=== PATIENT | female | born 1975 | race Caucasian/White ===

== ENCOUNTER 2016-05-17 05:53 | Emergency (ER) | payer BC, OTHER ==
--- NOTE | 2016-05-17 06:15 | ED ---
Abdominal Pain HPI - General Source: patient, family Mode of arrival: ambulatory Limitations: no limitations - History of Present Illness Complaint: abdominal pain Onset/Timin -: days(s) Location: LLQ Radiation: none Migration to: no migration Severity: moderate Quality: cramping, aching Consistency: constant Improves With: nothing Worsens With: nothing Associated Symptoms: nausea Treatments Prior to Arrival: prescription analgesics <Justus Norwood - Last Filed: 05/17/16 06:17> <Steve Severino - Last Filed: 05/17/16 07:56> - General Chief Complaint: Abdominal Pain Stated Complaint: poss ovarian cyst Time Seen by Provider: 05/17/16 06:03 - History of Present Illness Initial Comments: This patient is a 41 year old woman who presents to be evaluated for left lower quadrant pain. The patient states that the pain is reminiscent of previous ovarian pain she had associated with a corpus luteum. It also does somewhat remind her of the pain she experienced mittelschmerz but she states she is still about 5 days away from ambulation. Patient states she tried taking Tylenol 3 for last night but it didn't really relieve the pain. When it continued this morning she decided to have it evaluated here. She has also had a little bit of nausea but no vomiting. She has experienced some feelings like constipation but she states she has continued to pass bowel movements. Patient denies any urinary changes. (Justus Norwood) - Related Data Home Medications Medication Instructions Recorded Confirmed Multivitamins, Thera [Multivitamin] 1 tab PO DAILY 05/17/16 05/17/16 Previous Rx's Medication Instructions Recorded traMADol HCl [Ultram] 50 mg PO Q6H PRN #20 tab 05/17/16 Allergies Allergy/AdvReac Type Severity Reaction Status Date / Time erythromycin base Allergy GI BLEED Verified 05/17/16 07:45 moxifloxacin [From Avelox] Allergy Swelling Verified 05/17/16 07:45 Penicillins Allergy Rash/Hives Verified 05/17/16 07:45 tetracycline Allergy Hallucinati Verified 05/17/16 07:45 ons Review of Systems ROS Other: All systems not noted in ROS Statement are negative. Constitutional: Denies: fever, chills Respiratory: Denies: cough, dyspnea Cardiovascular: Denies: chest pain, palpitations, edema Gastrointestinal: Reports: abdominal pain, nausea, constipation. Denies: vomiting, diarrhea, melena, hematochezia Genitourinary: Denies: dysuria, hematuria, discharge, abnormal menses Musculoskeletal: Denies: back pain Skin: Denies: rash Neurological: Denies: headache <CucoJustus - Last Filed: 05/17/16 06:17> ROS Other: All systems not noted in ROS Statement are negative. <Steve Severino - Last Filed: 05/17/16 07:56> ROS Statement: Those systems with pertinent positive or pertinent negative responses have been documented in the HPI. Past Medical History Past Medical History: No Reported History History of Any Multi-Drug Resistant Organisms: None Reported Past Surgical History: No Surgical Hx Reported Past Psychological History: No Psychological Hx Reported Smoking Status: Never smoker Past Alcohol Use History: None Reported Past Drug Use History: None Reported <CucoJustus - Last Filed: 05/17/16 06:17> General Exam Limitations: no limitations General appearance: alert, in no apparent distress Respiratory exam: Present: normal lung sounds bilaterally. Absent: respiratory distress, wheezes, rales, rhonchi, stridor Cardiovascular Exam: Present: regular rate, normal rhythm, normal heart sounds. Absent: systolic murmur, diastolic murmur, rubs, gallop GI/Abdominal exam: Present: soft, tenderness (There is mild left lower quadrant tenderness without any rebound or guarding), normal bowel sounds. Absent: distended, guarding, rebound, rigid, mass, pulsatile mass, hernia Extremities exam: Present: normal inspection, normal capillary refill. Absent: pedal edema, calf tenderness Back exam: Present: normal inspection. Absent: CVA tenderness (R), CVA tenderness (L) Neurological exam: Present: alert Skin exam: Present: warm, dry, intact, normal color. Absent: rash <CucoJustus - Last Filed: 05/17/16 06:17> Medical Decision Making <CucoJustus - Last Filed: 05/17/16 06:17> - Lab Data Result diagrams: 05/17/16 06:25 05/17/16 06:25 - Radiology Data Radiology results: report reviewed (Ultrasound shows 2.7 cm left ovarian simple cyst.) <Steve Severino - Last Filed: 05/17/16 07:56> - Medical Decision Making Patient reevaluated by myself, Dr. Severino. Patient resting comfortably in bed. Patient does have mild tenderness in the left lower abdomen/pelvic region. Patient offered pelvic exam however does refuse. Patient updated on results and need for follow-up. (Steve Severino) - Lab Data Lab Results 05/17/16 05/17/16 05/17/16 Range/Units 06:20 06:20 06:25 WBC (3.8-10.6) k/uL RBC (3.80-5.40) m/uL Hgb (11.4-16.0) gm/dL Hct (34.0-46.0) % MCV (80.0-100.0) fL MCH (25.0-35.0) pg MCHC (31.0-37.0) g/dL RDW (11.5-15.5) % Plt Count (150-450) k/uL Neutrophils % % Lymphocytes % % Monocytes % % Eosinophils % % Basophils % % Neutrophils # (1.3-7.7) k/uL Lymphocytes # (1.0-4.8) k/uL Monocytes # (0-1.0) k/uL Eosinophils # (0-0.7) k/uL Basophils # (0-0.2) k/uL Sodium 139 (137-145) mmol/L Potassium 3.9 (3.5-5.1) mmol/L Chloride 102 (98-107) mmol/L Carbon Dioxide 26 (22-30) mmol/L Anion Gap 11 mmol/L BUN 10 (7-17) mg/dL Creatinine 0.76 (0.52-1.04) mg/dL Est GFR (MDRD) Af Amer >60 (>60 ml/min/1.73 sqM) Est GFR (MDRD) Non-Af >60 (>60 ml/min/1.73 sqM) Glucose 101 H (74-99) mg/dL Calcium 9.2 (8.4-10.2) mg/dL Total Bilirubin 0.7 (0.2-1.3) mg/dL AST 15 (14-36) U/L ALT 27 (9-52) U/L Alkaline Phosphatase 75 (38-126) U/L Total Protein 6.9 (6.3-8.2) g/dL Albumin 4.5 (3.5-5.0) g/dL Amylase 53 (30-110) U/L Lipase 55 (23-300) U/L Urine Color Yellow Urine Appearance Clear (Clear) Urine pH 6.5 (5.0-8.0) Ur Specific [place] 1.009 (1.001-1.035) Urine Protein Negative (Negative) Urine Glucose (UA) Negative (Negative) Urine Ketones Negative (Negative) Urine Blood Negative (Negative) Urine Nitrate Negative (Negative) Urine Bilirubin Negative (Negative) Urine Urobilinogen <2.0 (<2.0) mg/dL Ur Leukocyte Esterase Negative (Negative) Urine HCG, Qual Not Detected (Not Detectd) 05/17/16 Range/Units 06:25 WBC 9.9 (3.8-10.6) k/uL RBC 4.97 (3.80-5.40) m/uL Hgb 14.6 (11.4-16.0) gm/dL Hct 44.1 (34.0-46.0) % MCV 88.7 (80.0-100.0) fL MCH 29.3 (25.0-35.0) pg MCHC 33.1 (31.0-37.0) g/dL RDW 12.5 (11.5-15.5) % Plt Count 315 (150-450) k/uL Neutrophils % 81 % Lymphocytes % 11 % Monocytes % 4 % Eosinophils % 2 % Basophils % 0 % Neutrophils # 8.0 H (1.3-7.7) k/uL Lymphocytes # 1.1 (1.0-4.8) k/uL Monocytes # 0.4 (0-1.0) k/uL Eosinophils # 0.2 (0-0.7) k/uL Basophils # 0.0 (0-0.2) k/uL Sodium (137-145) mmol/L Potassium (3.5-5.1) mmol/L Chloride (98-107) mmol/L Carbon Dioxide (22-30) mmol/L Anion Gap mmol/L BUN (7-17) mg/dL Creatinine (0.52-1.04) mg/dL Est GFR (MDRD) Af Amer (>60 ml/min/1.73 sqM) Est GFR (MDRD) Non-Af (>60 ml/min/1.73 sqM) Glucose (74-99) mg/dL Calcium (8.4-10.2) mg/dL Total Bilirubin (0.2-1.3) mg/dL AST (14-36) U/L ALT (9-52) U/L Alkaline Phosphatase (38-126) U/L Total Protein (6.3-8.2) g/dL Albumin (3.5-5.0) g/dL Amylase (30-110) U/L Lipase (23-300) U/L Urine Color Urine Appearance (Clear) Urine pH (5.0-8.0) Ur Specific [place] (1.001-1.035) Urine Protein (Negative) Urine Glucose (UA) (Negative) Urine Ketones (Negative) Urine Blood (Negative) Urine Nitrate (Negative) Urine Bilirubin (Negative) Urine Urobilinogen (<2.0) mg/dL Ur Leukocyte Esterase (Negative) Urine HCG, Qual (Not Detectd) Disposition <Justus Norwood - Last Filed: 05/17/16 06:17> <Steve Severino - Last Filed: 05/17/16 07:56> Clinical Impression: Left ovarian cyst Disposition: HOME SELF-CARE Condition: Stable Instructions: Ovarian Cyst (ED) Additional Instructions: Please follow-up with primary care physician or [employer] in the next couple of days for recheck. Return for increased pain, fever, vomiting, worsening symptoms or other concerns. Prescriptions: traMADol HCl [Ultram] 50 mg PO Q6H PRN #20 tab PRN Reason: Pain/Discomfort Referrals: Jacqueline Hassan MD [Primary Care Provider] - 1-2 days
[2016-05-17 06:41] LABS: Appearance,Urine Clear (Clear); Bilirubin,Urine Negative (Negative); Glucose,Urine (UA) Negative (Negative); Ketones,Urine Negative (Negative); Leukocyte Esterase,Urine Negative (Negative); Nitrite,Urine Negative (Negative); PH, Urine 6.5 (5.0-8.0); Protein,Urine Negative (Negative); Specific Gravity,Urine 1.009 (1.001-1.035); UA Billing (MACRO vs. MICRO) CHEM; Urobilinogen,Urine <2.0 mg/dL (<2.0)
[2016-05-17 06:41] LABS: Basophils % (A) 0 %; CHCM 33.9; Eosinophils # (A) 0.2 k/uL (0-0.7); Eosinophils % (A) 2 %; HCT 44.1 % (34.0-46.0); HDW 2.32; HGB 14.6 gm/dL (11.4-16.0); Luc # (Auto) 0.11; Luc % (Auto) 1; Lymphocytes # (A) 1.1 k/uL (1.0-4.8); Lymphocytes % (A) 11 %; MCH 29.3 pg (25.0-35.0); MCHC 33.1 g/dL (31.0-37.0); MCV 88.7 fL (80.0-100.0); Mean Platelet Volume 6.6; Monocytes # (A) 0.4 k/uL (0-1.0); Monocytes % (A) 4 %; Neutrophils % (A) 81 %; RBC 4.97 m/uL (3.80-5.40); RDW 12.5 % (11.5-15.5); WBC 9.9 k/uL (3.8-10.6); WBC (Perox) 9.56
[2016-05-17 06:49] LABS: ALT 27 U/L (9-52); AST 15 U/L (14-36); Alkaline Phosphatase 75 U/L (38-126); Amylase 53 U/L (30-110); Anion Gap 11 mmol/L; Blood Urea Nitrogen 10 mg/dL (7-17); Calcium 9.2 mg/dL (8.4-10.2); Carbon Dioxide 26 mmol/L (22-30); Chloride 102 mmol/L (98-107); Glucose 101 mg/dL (74-99); Non-African American GFR(MDRD) >60 (>60 ml/min/1.73 sqM); Potassium 3.9 mmol/L (3.5-5.1); Sodium 139 mmol/L (137-145); Total Bilirubin 0.7 mg/dL (0.2-1.3); Total Protein 6.9 g/dL (6.3-8.2)
--- NOTE | 2016-05-17 07:43 | US ---
EXAMINATION TYPE: US transvaginal DATE OF EXAM: 05/17/2016 7:25 AM COMPARISON: NONE CLINICAL HISTORY: Pain, Left pelvic. LLQ and pelvic pain x 1 day TECHNIQUE: Transvaginal (TV) pelvic ultrasound Date of LMP: 05/05/2016 EXAM MEASUREMENTS: Uterus: 10.9 x 5.1 x 5.5 Endometrial Stripe: 1.5m Right Ovary: 3.0 x 2.2 x 1.8 Left Ovary: 4.1 x 2.4 x 3.7 TECHNOLOGIST IMPRESSION: wnl 1. Uterus: Anteverted Small amount of fluid within cervix 2. Endometrium: wnl 3. Right Ovary: wnl 4. Left Ovary: Cyst= 2.7 x 1.9 x 2.4 Spectral, color and waveform doppler imaging shows good arterial and venous flow within the ovaries ; there is no evidence for ovarian torsion. 5. Bilateral Adnexa: wnl 6. Posterior cul-de-sac: wnl Uterus is anteverted in shape and within normal limits in size. Endometrial thickness is 15 mm which is upper limits of normal but normal trilaminar appearance is identified. Small amount of fluid is se en in the endometrial canal at level of cervix. No free fluid is seen in pelvic cul-de-sac. Both ovaries are identified. Peripheral follicles are scattered throughout both ovaries. Within the l eft ovary there is 2.7 x 1.9 x 2.4 cm meter oval anechoic lesion with increased through transmission felt to reflect simple cysts. Satisfactory arterial flow to and venous return from both ovaries is pr esent. IMPRESSION: A 2.7 cm simple appearing cyst left ovary is noted. No significant finding is seen to acc ount for patient's symptoms.
[2016-05-17] MEDS ORDERED: KETOROLAC 30 MG/ML 1 ML VIAL IVP STA (07:55)
[2016-05-17 07:59] VITALS: TEMP 98.5
[2016-05-17 08:48] VITALS: BP 117/60; PULSE 79; RESP 14
== END 2016-05-17 08:50 | disposition home or self-care (01) ==
LOC: EC 05:53
DX: N83.202 Unspecified ovarian cyst, left side (principal); Z88.1 Allergy status to other antibiotic agents; Z88.0 Allergy status to penicillin
CPT/HCPCS: 36415; 80053; 82150; 83690; 85025; 81003; 81025; 93975; 76830; 96374; 99284; J1885

== ENCOUNTER → 2016-07-12 | Outpatient (CLI) | payer OTHER ==
--- NOTE | 2016-07-12 10:34 | MM ---
Reason for exam: screening (asymptomatic). Baseline mammogram. History: Family history of breast cancer in mother and breast cancer in paternal grandmother. Took hormonal contraceptives for 6 years beginning at age 18. Physical Findings: Nurse did not find any significant physical abnormalities on exam. MG 3D Screening Mammo W/Cad Bilateral CC and MLO view(s) were taken. The breast tissue is heterogeneously dense. This may lower the sensitivity of mammography. There is no discrete abnormality. These results were verbally communicated with the patient and result sheet given to the patient on 07/12/16. ASSESSMENT: Negative, BI-RAD 1 RECOMMENDATION: Routine screening mammogram of both breasts in 1 year.
--- NOTE | 2016-07-12 12:56 | US ---
EXAMINATION TYPE: US transvaginal DATE OF EXAM: 07/12/2016 11:02 AM COMPARISON: Prior pelvic ultrasound May 17, 2016. CLINICAL HISTORY: N83.292 Ovarian Cyst Left. TECHNIQUE: Transvaginal (TV) EXAM MEASUREMENTS: Uterus: 8.4 x 4.3 x 5.7 cm Endometrial Stripe: 1.3 cm Right Ovary: 3.5 x 1.7 x 1.8 cm Left Ovary: 2.5 x 1.6 x 1.5 cm Extensive peristalsing bowel in bilateral adnexa. 1. Uterus: Anteverted wnl 2. Endometrium: wnl 3. Right Ovary: cyst measured at 1.1 x 1.6 x 1.4cm 4. Left Ovary: wnl 5. Bilateral Adnexa: extensive peristalsing bowel 6. Posterior cul-de-sac: wnl Both ovaries are identified. Peripheral follicles are scattered throughout both ovaries. Slightly mor e prominent 1.6 cm anechoic oval lesion right ovary likely reflects dominant follicle. Previously vis ualized 2.7 cm cystic lesion left ovary is not identified on current study, consistent with resolutio n of follicular cyst. IMPRESSION: No suspicious abnormality on current study.
== END | disposition home or self-care (01) ==
LOC: RADMAMWWP 09:31
PROVIDERS: ATTEND Obstetrics & Gynecology
DX: Z12.31 Encounter for screening mammogram for malignant neoplasm of breast (principal); N83.292 Other ovarian cyst, left side
CPT/HCPCS: 77063; 76830; G0202

== ENCOUNTER 2017-07-30 13:19 | Emergency (ER) | payer BC ==
[2017-07-30 13:45] VITALS: BP 132/61; TEMP 97.7
[2017-07-30] MEDS ORDERED: IPRATROPIUM-ALBUTEROL 3 ML NEB INHALATION STA (13:49)
--- NOTE | 2017-07-30 13:56 | ED ---
General Adult HPI - General Chief complaint: Shortness of Breath Stated complaint: Dificulty Breathing Time Seen by Provider: 07/30/17 13:46 Source: patient, RN notes reviewed Mode of arrival: ambulatory Limitations: no limitations - History of Present Illness Initial comments: Patient is a pleasant 42-year-old female presenting to the emergency department with complaints of cough and difficulty breathing. Patient has had similar symptoms several times previously associated with upper respiratory infections. Patient does have asthma at times associated with upper respiratory infection. Patient does have a nebulizer at home however does not hardly ever uses it. Patient has had cough for the past 2 weeks. Patient did have fever at onset and sore throat. Patient was placed on Keflex by her primary care physician and just finished this today. Patient states cough is getting somewhat worse and started become more thick and slightly yellowed tinged. Patient is starting to have some mild dyspnea. No leg pain or leg swelling. Patient along worse having fevers. - Related Data Home Medications Medication Instructions Recorded Confirmed Multivitamins, Thera [Multivitamin] 1 tab PO DAILY 05/17/16 05/17/16 Previous Rx's Medication Instructions Recorded traMADol HCl [Ultram] 50 mg PO Q6H PRN #20 tab 05/17/16 predniSONE 20 mg PO BID #8 tab 07/30/17 Allergies Allergy/AdvReac Type Severity Reaction Status Date / Time erythromycin base Allergy GI BLEED Verified 07/30/17 13:45 moxifloxacin [From Avelox] Allergy Swelling Verified 07/30/17 13:45 Penicillins Allergy Rash/Hives Verified 07/30/17 13:45 tetracycline Allergy Hallucinati Verified 07/30/17 13:45 ons Review of Systems ROS Statement: Those systems with pertinent positive or pertinent negative responses have been documented in the HPI. ROS Other: All systems not noted in ROS Statement are negative. Constitutional: Denies: fever Eyes: Denies: eye pain ENT: Denies: ear pain, throat pain (Resolved) Respiratory: Reports: cough, dyspnea Cardiovascular: Denies: chest pain Endocrine: Denies: fatigue Gastrointestinal: Denies: abdominal pain Genitourinary: Denies: dysuria Musculoskeletal: Denies: back pain Skin: Denies: rash Neurological: Denies: weakness Past Medical History Past Medical History: No Reported History History of Any Multi-Drug Resistant Organisms: None Reported Past Surgical History: No Surgical Hx Reported Past Psychological History: No Psychological Hx Reported Smoking Status: Never smoker Past Alcohol Use History: None Reported Past Drug Use History: None Reported General Exam Limitations: no limitations General appearance: alert, in no apparent distress Head exam: Present: atraumatic Eye exam: Present: normal appearance, PERRL ENT exam: Present: normal oropharynx Neck exam: Present: normal inspection Respiratory exam: Present: wheezes (Mild expiratory wheeze), rhonchi Cardiovascular Exam: Present: regular rate, normal rhythm GI/Abdominal exam: Present: soft. Absent: tenderness Extremities exam: Present: normal inspection. Absent: pedal edema, calf tenderness Neurological exam: Present: alert Psychiatric exam: Present: normal affect, normal mood Skin exam: Present: normal color Course Vital Signs 07/30/17 07/30/17 07/30/17 13:42 13:57 14:13 Temperature 97.7 F Pulse Rate 81 81 Respiratory 18 16 Rate Blood Pressure 132/61 O2 Sat by Pulse 97 Oximetry 07/30/17 14:22 Temperature Pulse Rate 84 Respiratory Rate Blood Pressure O2 Sat by Pulse Oximetry Medical Decision Making - Medical Decision Making Patient reevaluated and does feel somewhat better. Lungs no longer with wheezing however patient still has some rhonchi. Patient updated on results and need for follow-up. - Radiology Data Radiology results: image reviewed (Chest x-ray shows no acute process) Disposition Clinical Impression: Asthmatic bronchitis Disposition: HOME SELF-CARE Condition: Stable Instructions: Acute Bronchitis (ED), Bronchospasm (ED) Additional Instructions: Please follow-up with your primary care physician in the next day or 2 for recheck. Return for fevers, difficulty breathing, worsening or changing symptoms or other concerns. Please do use your albuterol nebulizer 4 times daily for the next 2 days and then as needed. Prescriptions: predniSONE 20 mg PO BID #8 tab Is patient prescribed a controlled substance at d/c from ED?: No Referrals: José Manuel Hernandez DO [Primary Care Provider] - 1-2 days Time of Disposition: 14:37
[2017-07-30 13:58] VITALS: RESP 16
--- NOTE | 2017-07-30 14:07 | XR ---
EXAMINATION TYPE: XR chest 2V DATE OF EXAM: 07/30/2017 COMPARISON: None HISTORY: 42-year-old female cough and dyspnea, shortness of breath TECHNIQUE: Frontal and lateral views FINDINGS: The cardiomediastinal silhouette, aorta, and pulmonary vasculature are within normal limits. Hazy low er lung densities relating to overlying soft tissue. No consolidation or pleural effusion. IMPRESSION: No acute cardiopulmonary process.
[2017-07-30 14:22] VITALS: PULSE 84
[2017-07-30] MEDS ORDERED: predniSONE 50 MG TAB PO STA (14:36)
== END 2017-07-30 15:05 | disposition home or self-care (01) ==
LOC: EC 13:19
DX: J45.909 Unspecified asthma, uncomplicated (principal); R50.9 Fever, unspecified; Z88.0 Allergy status to penicillin; Z88.1 Allergy status to other antibiotic agents
CPT/HCPCS: 94640; 71046; 99285; J7512

== ENCOUNTER 2018-03-23 15:08 | Emergency (ER) | payer BC ==
[2018-03-23] MEDS ORDERED: SODIUM CHLORIDE 0.9% 1,000 ML IV STA (15:27)
[2018-03-23 16:00] LABS: Basophils % (A) 1 %; Eosinophils # (A) 0.1 k/uL (0-0.7); Eosinophils % (A) 1 %; HGB 15.3 gm/dL (11.4-16.0); Lymphocytes # (A) 1.6 k/uL (1.0-4.8); Lymphocytes % (A) 20 %; MCH 29.6 pg (25.0-35.0); MCV 87.2 fL (80.0-100.0); Mean Platelet Volume 6.6; Monocytes # (A) 0.3 k/uL (0-1.0); Monocytes % (A) 4 %; Neutrophils % (A) 74 %; Platelet Count 338 k/uL (150-450); RBC 5.16 m/uL (3.80-5.40); RDW 12.4 % (11.5-15.5); WBC 8.2 k/uL (3.8-10.6)
--- NOTE | 2018-03-23 16:02 | XR ---
EXAMINATION TYPE: XR chest 2V DATE OF EXAM: 03/23/2018 COMPARISON: NONE HISTORY: Chest pain for 3 days TECHNIQUE: Frontal and lateral views of the chest are obtained. FINDINGS: There is no focal air space opacity, pleural effusion, or pneumothorax seen. The cardiac silhouette size is within normal limits. The osseous structures are intact. IMPRESSION: No acute cardiopulmonary process.
--- NOTE | 2018-03-23 16:02 | ED ---
Chest Pain HPI - General Chief Complaint: Chest Pain Stated Complaint: Chest pressure,heart fluttering Time Seen by Provider: 03/23/18 15:27 Source: patient, RN notes reviewed, old records reviewed Mode of arrival: ambulatory Limitations: no limitations - History of Present Illness Initial Comments: This is a 43-year-old female to the ER for evaluation is patient does say for evaluation regards to chest pain. 2-3 days of chest pain left-sided chest pain left shoulder left arm. Patient states she has history of this pain before but it did not last this long. Patient has no fevers. No cough no congestion. No recent travel history no known sick contacts. No significant shortness of breath currently. No diaphoresis. Patient has no medical history no high blood pressure high cholesterol no diabetes nonsmoker with no significant family history of heart disease MD Complaint: chest pain -: days(s) (3) Onset: during rest, during exertion Pain Location: left chest Pain Radiation: LUE, neck Severity: mild Severity scale (1-10): 2 Quality: aching Consistency: intermittent Improves With: nothing Worsens With: nothing Context: other (Patient does have history of same) Other Symptoms: other (None) Treatments Prior to Arrival: other (None) - Related Data Home Medications Medication Instructions Recorded Confirmed Caprylic Acid 2 cap PO DAILY 03/23/18 03/23/18 Dha 1 - 2 tab PO DAILY 03/23/18 03/23/18 Garlic 1 tab PO DAILY 03/23/18 03/23/18 Inulin (Pre Biotic) 2.5 ml PO DAILY 03/23/18 03/23/18 Niacin (Inositol Niacinate) 1,000 mg PO DAILY 03/23/18 03/23/18 [Niacin 500 mg Capsule] Oregano Oil 2 - 3 drop PO DAILY 03/23/18 03/23/18 Allergies Allergy/AdvReac Type Severity Reaction Status Date / Time erythromycin base Allergy GI BLEED Verified 03/23/18 16:02 latex Allergy Rash/Hives Verified 03/23/18 16:08 moxifloxacin [From Avelox] Allergy Swelling Verified 03/23/18 16:02 Penicillins Allergy Rash/Hives Verified 03/23/18 16:02 tetracycline Allergy Hallucinati Verified 03/23/18 16:02 ons Review of Systems ROS Statement: Those systems with pertinent positive or pertinent negative responses have been documented in the HPI. ROS Other: All systems not noted in ROS Statement are negative. EKG Findings - EKG Comments: EKG Findings:: EKG shows sinus rhythm rate of 88, AR 150, QRS 70, QTc 460 Past Medical History Past Medical History: No Reported History History of Any Multi-Drug Resistant Organisms: None Reported Past Surgical History: No Surgical Hx Reported Past Psychological History: No Psychological Hx Reported Smoking Status: Never smoker Past Alcohol Use History: None Reported Past Drug Use History: None Reported General Exam Limitations: no limitations General appearance: alert, in no apparent distress, anxious Head exam: Present: atraumatic, normocephalic, normal inspection Eye exam: Present: normal appearance, PERRL, EOMI. Absent: scleral icterus, conjunctival injection, periorbital swelling ENT exam: Present: normal exam, mucous membranes moist Neck exam: Present: normal inspection. Absent: tenderness, meningismus, lymphadenopathy Respiratory exam: Present: normal lung sounds bilaterally. Absent: respiratory distress, wheezes, rales, rhonchi, stridor Cardiovascular Exam: Present: normal rhythm, tachycardia, normal heart sounds. Absent: systolic murmur, diastolic murmur, rubs, gallop, clicks GI/Abdominal exam: Present: soft, normal bowel sounds. Absent: distended, tenderness, guarding, rebound, rigid Extremities exam: Present: normal inspection, full ROM, normal capillary refill. Absent: tenderness, pedal edema, joint swelling, calf tenderness Back exam: Present: normal inspection Neurological exam: Present: alert, oriented X3, CN II-XII intact Psychiatric exam: Present: normal affect, normal mood Skin exam: Present: warm, dry, intact, normal color. Absent: rash Course Vital Signs 03/23/18 03/23/18 03/23/18 15:13 17:41 19:37 Temperature 98.2 F Pulse Rate 108 H 73 89 Respiratory 20 18 18 Rate Blood Pressure 162/94 141/88 132/72 O2 Sat by Pulse 99 100 98 Oximetry - Reevaluation(s) Reevaluation #1: 03/23/18 18:58 Medical records reviewed Reevaluation #2: 03/23/18 20:51 Patient states she is having persistent pain, advised with low risk cardiac risk that she has normal testing she should follow-up with primary care Chest Pain MDM - MDM 43 female to the ED W co CP, Left CP w radiation to shoulder times [address] labwork and troponin negative, patient safe for discharge and FU w primary care. - ROWENA Score Age > 65: (0) No 3 or more CAD Risk Factors: (0) No Known CAD with more than 50% Stenosis: (0) No Aspirin use within the Past 7 Days: (0) No Elevated Cardiac Markers: (0) No ST Deviation Greater than 0.5mm: (0) No Disposition Clinical Impression: Chest pain Disposition: HOME SELF-CARE Condition: Good Instructions: Chest Pain (ED) Is patient prescribed a controlled substance at d/c from ED?: No Referrals: José Manuel Hernandez DO [Primary Care Provider] - 1-2 days
[2018-03-23 16:11] LABS: ALT 21 U/L (9-52); AST 20 U/L (14-36); Albumin 4.9 g/dL (3.5-5.0); Alkaline Phosphatase 72 U/L (38-126); Anion Gap 12 mmol/L; Blood Urea Nitrogen 13 mg/dL (7-17); Calcium 10.2 mg/dL (8.4-10.2); Carbon Dioxide 23 mmol/L (22-30); Chloride 103 mmol/L (98-107); Glucose 107 mg/dL (74-99); Lipase 87 U/L (23-300); Magnesium 1.9 mg/dL (1.6-2.3); Sodium 138 mmol/L (137-145); Total Bilirubin 0.5 mg/dL (0.2-1.3); Total Protein 7.5 g/dL (6.3-8.2)
[2018-03-23 16:18] LABS: D-Dimer 0.39 mg/L FEU (<0.60); INR 0.9 (<1.2); Partial Thromboplastin Time 24.3 sec (22.0-30.0); Prothrombin Time 9.8 sec (9.0-12.0)
[2018-03-23 16:29] LABS: Creatine Kinase 68 U/L (30-135)
[2018-03-23 16:43] LABS: Creatine Kinase MB 0.5 ng/mL (0.0-2.4); Troponin I <0.012 ng/mL (0.000-0.034)
[2018-03-23 17:42] VITALS: RESP 18
--- NOTE | 2018-03-23 19:44 | CT ---
CT CHEST FOR PULMONARY EMBOLISM. EXAMINATION TYPE: CT angio chest DATE OF EXAM: 03/23/2018 INDICATION: Chest pain. CT DLP: 262.4 mGycm, Automated exposure control for dose reduction was used. CONTRAST: Patient injected with 100ml mL of Isovue 370. COMPARISON: None TECHNIQUE: CT of the chest is performed on a spiral scan at 2 mm thick sections. Study is performed with intravenous contrast timed for evaluation for pulmonary embolism. This will limit additional po rtions of the evaluation. 3-D MIP images reconstructed by the technologist are reviewed on the compu ter in the coronal and sagittal planes. FINDINGS: No persistent filling defects are evident to suggest an acute pulmonary embolism. No mediastinal or hilar adenopathy enlarged by CT criteria is evident. The ascending aorta diameter at the level of the main pulmonary artery is 3.0 cm. The main pulmonary artery diameter at the bifur cation is 2.2 cm. Small hiatal hernia is present. Lung windows are clear. Portion of the thyroid visualized is unremarkable. Limited CT section through the upper abdomen are unremarkable. IMPRESSIONS: 1. No acute pulmonary embolism.
[2018-03-23 20:56] VITALS: BP 141/73; PULSE 82; TEMP 98
== END 2018-03-23 20:56 | disposition home or self-care (01) ==
LOC: EC 15:08
DX: R07.89 Other chest pain (principal); Z79.899 Other long term (current) drug therapy; Z88.1 Allergy status to other antibiotic agents; Z91.040 Latex allergy status; Z88.0 Allergy status to penicillin
CPT/HCPCS: 36415; 93005; 85379; 83880; 80053; 82550; 82553; 83690; 83735; 84484; 85025; 85610; 85730; 71046; 71275; 99285; 96360; 96361; Q9967

== ENCOUNTER 2018-04-20 17:19 | Inpatient (IN) | payer BC ==
[2018-04-20] MEDS ORDERED: MORPHINE SULFATE 4 MG/ML SYRINGE IV STA (17:39)
[2018-04-20] MEDS ORDERED: SODIUM CHLORIDE 0.9% 1,000 ML IV STA (17:39)
[2018-04-20] MEDS ORDERED: ONDANSETRON ODT 8 MG TAB.RAPDIS PO STA (17:39)
[2018-04-20] MEDS ORDERED: FAMOTIDINE 20 MG/2 ML VIAL IV STA (17:42)
--- NOTE | 2018-04-20 17:43 | ED ---
Abdominal Pain HPI - General Chief Complaint: Abdominal Pain Stated Complaint: ABDOMINAL PAIN, POSS GALLBLADDER Time Seen by Provider: 04/20/18 17:28 Source: patient Mode of arrival: ambulatory Limitations: no limitations - History of Present Illness Initial Comments: 43-year-old female patient presents to the emergency department today for evaluation of left upper quadrant abdominal pain. Patient states that symptoms started on Monday with a more generalized abdominal cramping and bloating. Patient states the pain has migrated now to the left upper quadrant has been constant since last evening. She describes the pain as an intense pressure. States it does radiate to the left mid back. Patient states she has no appetite , has been nauseated, and chilled. Denies any known fever. States that she did have a small bowel movement this morning however did not change her symptoms. She denies any hematochezia or melena. Denies any history of abdominal surgery. States that she was at her primary care physician's office today and did have an ultrasound performed, she has not yet gotten the results. Patient denies any recent rash, shortness breath, chest pain, numbness, tingling , dizziness, weakness, hematuria, dysuria, urinary urgency, urinary frequency, headache, visual changes, or any other complaints. - Related Data Home Medications Medication Instructions Recorded Confirmed Caprylic Acid 2 cap PO DAILY 03/23/18 04/20/18 Multivitamins, Thera [Multivitamin 1 tab PO DAILY 04/20/18 04/20/18 (formulary)] Allergies Allergy/AdvReac Type Severity Reaction Status Date / Time erythromycin base Allergy GI BLEED Verified 04/20/18 18:46 latex Allergy Rash/Hives Verified 04/20/18 18:46 moxifloxacin [From Avelox] Allergy Swelling Verified 04/20/18 18:46 Penicillins Allergy Rash/Hives Verified 04/20/18 18:46 tetracycline Allergy Hallucinati Verified 04/20/18 18:46 ons Review of Systems ROS Statement: Those systems with pertinent positive or pertinent negative responses have been documented in the HPI. ROS Other: All systems not noted in ROS Statement are negative. Past Medical History Past Medical History: No Reported History History of Any Multi-Drug Resistant Organisms: None Reported Past Surgical History: No Surgical Hx Reported Past Psychological History: No Psychological Hx Reported Smoking Status: Never smoker Past Alcohol Use History: Occasional Past Drug Use History: None Reported General Exam Limitations: no limitations General appearance: alert, in no apparent distress, other (this is a well- developed, well-nourished adult female patient in no acute distress. Vital signs upon presentation are temperature 98.5F, pulse 128, respirations 20, blood pressure 140/85, pulse ox 99% on room air.) Eye exam: Present: normal appearance, PERRL, EOMI. Absent: scleral icterus, conjunctival injection, periorbital swelling ENT exam: Present: normal exam, normal oropharynx, mucous membranes moist Respiratory exam: Present: normal lung sounds bilaterally. Absent: respiratory distress, wheezes, rales, rhonchi, stridor Cardiovascular Exam: Present: regular rate, normal rhythm, normal heart sounds. Absent: systolic murmur, diastolic murmur, rubs, gallop, clicks GI/Abdominal exam: Present: soft, tenderness (Midepigastric and left upper quadrant abdominal tenderness), normal bowel sounds. Absent: distended, guarding, rebound, rigid Neurological exam: Present: alert, oriented X3, CN II-XII intact Psychiatric exam: Present: normal affect, normal mood Skin exam: Present: warm, dry, intact, normal color. Absent: rash Course Vital Signs 04/20/18 04/20/18 04/20/18 17:25 18:25 20:08 Temperature 98.5 F 99.2 F Pulse Rate 128 H 100 97 Respiratory 20 14 14 Rate Blood Pressure 148/85 120/72 113/61 O2 Sat by Pulse 99 96 98 Oximetry Medical Decision Making - Medical Decision Making 43-year-old female patient presents to the emergency department today for evaluation of left upper quadrant abdominal pain and anorexia. Physical examination did reveal left upper quadrant and midepigastric tenderness. Patient did have an outpatient ultrasound which was reviewed and showed no acute abnormalities. Labs reviewed and did reveal elevated white blood cell count is 17.8 with a neutrophil count of 15.8. There is also 4+ ketones in the urine. Patient is given IV fluids. Diffuse pain medication. Given elevated white blood cell count and presence of abdominal tenderness or did perform CT abdomen and pelvis which did show evidence of moderate diverticulitis in the proximal descending colon. I did discuss findings and results with the patient. She will be admitted for IV antibiotics. She is agreeable with this plan. - Lab Data Result diagrams: 04/20/18 18:15 02/08/19 18:15 Lab Results 04/20/18 04/20/18 04/20/18 Range/Units 18:15 18:15 18:33 WBC 17.8 H (3.8-10.6) k/uL RBC 5.19 (3.80-5.40) m/uL Hgb 15.2 (11.4-16.0) gm/dL Hct 45.7 (34.0-46.0) % MCV 88.1 (80.0-100.0) fL MCH 29.4 (25.0-35.0) pg MCHC 33.3 (31.0-37.0) g/dL RDW 12.6 (11.5-15.5) % Plt Count 330 (150-450) k/uL Neutrophils % 89 % Lymphocytes % 6 % Monocytes % 4 % Eosinophils % 1 % Basophils % 0 % Neutrophils # 15.8 H (1.3-7.7) k/uL Lymphocytes # 1.1 (1.0-4.8) k/uL Monocytes # 0.7 (0-1.0) k/uL Eosinophils # 0.1 (0-0.7) k/uL Basophils # 0.0 (0-0.2) k/uL Sodium 138 (137-145) mmol/L Potassium 4.3 (3.5-5.1) mmol/L Chloride 106 (98-107) mmol/L Carbon Dioxide 18 L (22-30) mmol/L Anion Gap 14 mmol/L BUN 13 (7-17) mg/dL Creatinine 0.63 (0.52-1.04) mg/dL Est GFR (CKD-EPI)AfAm >90 (>60 ml/min/1.73 sqM) Est GFR (CKD-EPI)NonAf >90 (>60 ml/min/1.73 sqM) Glucose 106 H (74-99) mg/dL Calcium 9.5 (8.4-10.2) mg/dL Total Bilirubin 1.4 H (0.2-1.3) mg/dL AST 15 (14-36) U/L ALT 27 (9-52) U/L Alkaline Phosphatase 72 (38-126) U/L Total Protein 7.3 (6.3-8.2) g/dL Albumin 4.6 (3.5-5.0) g/dL Amylase 45 (30-110) U/L Lipase 28 (23-300) U/L Urine Color Yellow Urine Appearance Cloudy H (Clear) Urine pH 6.0 (5.0-8.0) Ur Specific [place] 1.028 (1.001-1.035) Urine Protein 1+ H (Negative) Urine Glucose (UA) Negative (Negative) Urine Ketones 4+ H (Negative) Urine Blood Negative (Negative) Urine Nitrite Negative (Negative) Urine Bilirubin Negative (Negative) Urine Urobilinogen 2.0 (<2.0) mg/dL Ur Leukocyte Esterase Negative (Negative) Urine RBC 9 H (0-5) /hpf Ur Squamous Epith Cells 2 (0-4) /hpf Amorphous Sediment Rare H (None) /hpf Hyaline Casts 7 H (0-2) /lpf Urine Mucus Many H (None) /hpf Urine HCG, Qual (Not Detectd) 04/20/18 Range/Units 18:33 WBC (3.8-10.6) k/uL RBC (3.80-5.40) m/uL Hgb (11.4-16.0) gm/dL Hct (34.0-46.0) % MCV (80.0-100.0) fL MCH (25.0-35.0) pg MCHC (31.0-37.0) g/dL RDW (11.5-15.5) % Plt Count (150-450) k/uL Neutrophils % % Lymphocytes % % Monocytes % % Eosinophils % % Basophils % % Neutrophils # (1.3-7.7) k/uL Lymphocytes # (1.0-4.8) k/uL Monocytes # (0-1.0) k/uL Eosinophils # (0-0.7) k/uL Basophils # (0-0.2) k/uL Sodium (137-145) mmol/L Potassium (3.5-5.1) mmol/L Chloride (98-107) mmol/L Carbon Dioxide (22-30) mmol/L Anion Gap mmol/L BUN (7-17) mg/dL Creatinine (0.52-1.04) mg/dL Est GFR (CKD-EPI)AfAm (>60 ml/min/1.73 sqM) Est GFR (CKD-EPI)NonAf (>60 ml/min/1.73 sqM) Glucose (74-99) mg/dL Calcium (8.4-10.2) mg/dL Total Bilirubin (0.2-1.3) mg/dL AST (14-36) U/L ALT (9-52) U/L Alkaline Phosphatase (38-126) U/L Total Protein (6.3-8.2) g/dL Albumin (3.5-5.0) g/dL Amylase (30-110) U/L Lipase (23-300) U/L Urine Color Urine Appearance (Clear) Urine pH (5.0-8.0) Ur Specific [place] (1.001-1.035) Urine Protein (Negative) Urine Glucose (UA) (Negative) Urine Ketones (Negative) Urine Blood (Negative) Urine Nitrite (Negative) Urine Bilirubin (Negative) Urine Urobilinogen (<2.0) mg/dL Ur Leukocyte Esterase (Negative) Urine RBC (0-5) /hpf Ur Squamous Epith Cells (0-4) /hpf Amorphous Sediment (None) /hpf Hyaline Casts (0-2) /lpf Urine Mucus (None) /hpf Urine HCG, Qual Not Detected (Not Detectd) - Radiology Data Radiology results: report reviewed, image reviewed CT abdomen and pelvis was obtained with contrast. Report was reviewed in its entirety. Impression by Dr. Mary Saab shows moderate diverticulitis of the proximal descending colon. Disposition Clinical Impression: Diverticulitis Disposition: ADMITTED IP TO THIS [facility] Condition: Serious Decision to Admit Reason: Admit from EC Decision Date: 04/20/18 Decision Time: 20:41
[2018-04-20 18:36] LABS: Basophils % (A) 0 %; Eosinophils # (A) 0.1 k/uL (0-0.7); Eosinophils % (A) 1 %; HCT 45.7 % (34.0-46.0); HGB 15.2 gm/dL (11.4-16.0); Lymphocytes # (A) 1.1 k/uL (1.0-4.8); Lymphocytes % (A) 6 %; MCH 29.4 pg (25.0-35.0); MCHC 33.3 g/dL (31.0-37.0); MCV 88.1 fL (80.0-100.0); Mean Platelet Volume 6.1; Monocytes # (A) 0.7 k/uL (0-1.0); Monocytes % (A) 4 %; Neutrophils # (A) 15.8 k/uL (1.3-7.7); Neutrophils % (A) 89 %; Platelet Count 330 k/uL (150-450); RBC 5.19 m/uL (3.80-5.40); RDW 12.6 % (11.5-15.5); WBC 17.8 k/uL (3.8-10.6)
[2018-04-20] MEDS ORDERED: ACETAMINOPHEN TAB 325 MG TAB PO STA (18:37)
[2018-04-20 18:47] LABS: ALT 27 U/L (9-52); AST 15 U/L (14-36); Albumin 4.6 g/dL (3.5-5.0); Alkaline Phosphatase 72 U/L (38-126); Amylase 45 U/L (30-110); Anion Gap 14 mmol/L; Blood Urea Nitrogen 13 mg/dL (7-17); Calcium 9.5 mg/dL (8.4-10.2); Carbon Dioxide 18 mmol/L (22-30); Chloride 106 mmol/L (98-107); Glucose 106 mg/dL (74-99); Lipase 28 U/L (23-300); Potassium 4.3 mmol/L (3.5-5.1); Sodium 138 mmol/L (137-145); Total Bilirubin 1.4 mg/dL (0.2-1.3); Total Protein 7.3 g/dL (6.3-8.2)
[2018-04-20 19:03] LABS: Amorphous Sediment,Urine Rare /hpf; Appearance,Urine Cloudy (Clear); Bilirubin,Urine Negative (Negative); Blood,Urine Negative (Negative); Color,Urine Yellow; Glucose,Urine (UA) Negative (Negative); Hyaline Casts,Urine 7 /lpf (0-2); Ketones,Urine 4+ (Negative); Leukocyte Esterase,Urine Negative (Negative); Mucus,Urine Many /hpf; Nitrite,Urine Negative (Negative); Protein,Urine 1+ (Negative); RBC,Urine 9 /hpf (0-5); Specific Gravity,Urine 1.028 (1.001-1.035); Squamous Epithelial Cell,Urine 2 /hpf (0-4)
[2018-04-20] MEDS ORDERED: SODIUM CHLORIDE 0.9% 1,000 ML IV ONE (20:03)
--- NOTE | 2018-04-20 20:13 | CT ---
EXAMINATION TYPE: CT abdomen pelvis w con DATE OF EXAM: 04/20/2018 COMPARISON: None HISTORY: left sided abdominal pain CT DLP: 720.8 mGycm Automated exposure control for dose reduction was used. TECHNIQUE: Helical acquisition of images was performed from the lung bases through the pelvis. CONTRAST: Performed without Oral Contrast and with IV Contrast, patient injected with 100 mL of Isovue 300. FINDINGS: LUNG BASES: No significant abnormality is appreciated. LIVER/GB: No significant abnormality is appreciated. PANCREAS: No significant abnormality is seen. SPLEEN: No significant abnormality is seen. ADRENALS: No significant abnormality is seen. KIDNEYS: No significant abnormality is seen. FREE AIR: No free air is visualized. RETROPERITONEAL ADENOPATHY: None visualized REPRODUCTIVE ORGANS: No significant abnormality is seen URINARY BLADDER: No significant abnormality is seen. PELVIC ADENOPATHY: None visualized. OSSEOUS STRUCTURES: No significant abnormality is seen. BOWEL: The proximal descending colon shows mild/moderate circumferential mural thickening and indist inctness There is edematous reticulation surrounding an ill-defined 1 cm diverticulum arising posteri trinh off the proximal descending colon. The moderately prominent edematous reticulation is associated with left lateral conal fascia ill-defined thickening and anterior left renal fascial ill-defined th ickening. No bowel obstruction. No extraluminal gas or fluid collections. Eventual follow-up direct visualization can be used to exclude underlying mucosal pathology. OTHER: Vasculature is unremarkable. IMPRESSION: MODERATE DIVERTICULITIS OF THE PROXIMAL DESCENDING COLON.
[2018-04-20] MEDS ORDERED: AZTREONAM 2 GM in SODIUM CHLORIDE 0.9% 100 ML IVPB STA (20:33)
[2018-04-20] MEDS ORDERED: metroNIDAZOLE-NS PMX 500 MG in SALINE 1 100ML.BAG IVPB STA (20:33)
[2018-04-20] MEDS ORDERED: NALOXONE 0.4 MG/ML 1 ML VIAL IV PRN (20:35)
[2018-04-20] MEDS ORDERED: ONDANSETRON 4 MG/2 ML VIAL IVP PRN (21:19)
[2018-04-20] MEDS: MORPHINE SULFATE 4 MG/ML SYRINGE IVP PRN (21:32)
[2018-04-20] MEDS: SODIUM CHLORIDE 0.9% 1,000 ML IV SCH (21:47)
[2018-04-20 21:56] VITALS: BMI 28.3
[2018-04-21] MEDS: MORPHINE SULFATE 4 MG/ML SYRINGE IVP PRN ×4 (03:04→21:06)
[2018-04-21] MEDS: AZTREONAM 2 GM in SODIUM CHLORIDE 0.9% 100 ML IVPB SCH ×4 (08:40→18:05)
[2018-04-21] MEDS: metroNIDAZOLE-NS PMX 500 MG in SALINE 1 100ML.BAG IVPB SCH ×3 (09:49→23:38)
--- NOTE | 2018-04-21 12:54 | P.HPIM ---
History of Present Illness H&P Date: 04/21/18 This is a 43-year-old female patient of Dr. Hernandez with past medical history of frequent urinary tract infections, remote history of tobacco use. Patient gives history that she saw Dr. Hernandez yesterday she was having abdominal pain that was in the left side going around to her flank that started on Monday she also had nausea without vomiting, chills and possible low-grade fever. Her last bowel movement was yesterday morning. She did feel that she had some constipation and took a laxative tea and she did not have a bowel movement on Monday or and was having some sharp gas pains. She is now penicillin gas but no bowel movement since yesterday. She saw Dr. Hernandez yesterday morning and was ordered for an ultrasound of the gallbladder which she did. She contacted the office which was closed and she was instructed to go to the emergency center for evaluation. Patient presented to [facility] emergency center was found to be afebrile, pulse was elevated at 128, blood pressure 140/85, pulse ox 99% on room air. White count was 17.8, electrolytes were normal except CO2 was 18, creatinine 0.63, glucose 106, total bilirubin 1.4 liver function tests were normal. Urinalysis was cloudy with nitrate and leukoesterase negative. HCG was not detected. She underwent CT of the abdomen and pelvis with contrast that showed moderate diverticulitis of the proximal descending colon. Due to antibiotic ALLERGIES, patient was started on Azactam, Flagyl, IV fluids, Zofran and morphine and admitted to the [facility] floor. Diet is currently clear liquid and she is tolerating this. Patient has never had a colonoscopy and does not have surgeon. Review of Systems All systems: negative Constitutional: Reports anorexia, Reports chills, Reports poor appetite, Denies fatigue, Denies fever Eyes: denies blurred vision, denies pain Ears, nose, mouth and throat: Denies dysphagia, Denies headache, Denies sore throat Cardiovascular: Denies chest pain, Denies decreased exercise tolerance, Denies dyspnea on exertion, Denies edema, Denies leg edema, Denies shortness of breath , Denies syncope Respiratory: Denies cough, Denies cough with sputum, Denies dyspnea, Denies excessive sputum, Denies hemoptysis, Denies home oxygen, Denies wheezing Gastrointestinal: Reports abdominal pain, Reports constipation, Reports loss of appetite, Reports nausea, Denies diarrhea, Denies vomiting Genitourinary: Reports flank pain, Denies dysuria, Denies hematuria Musculoskeletal: Denies frequent falls, Denies gait dysfunction, Denies muscle weakness, Denies myalgias Integumentary: Denies pruritus, Denies rash, Denies wounds Neurological: Denies aphasia, Denies change in mentation, Denies change in speech, Denies gait dysfunction, Denies headaches, Denies numbness, Denies seizures, Denies weakness Psychiatric: Denies anxiety, Denies depression Endocrine: Denies fatigue, Denies weight change Past Medical History Past Medical History: No Reported History Additional Past Medical History / Comment(s): Diverticulitis, frequent urinary tract infection history History of Any Multi-Drug Resistant Organisms: None Reported Past Surgical History: No Surgical Hx Reported Past Anesthesia/Blood Transfusion Reactions: No Reported Reaction Past Psychological History: No Psychological Hx Reported Smoking Status: Never smoker Past Alcohol Use History: Occasional Additional Past Alcohol Use History / Comment(s): Patient was a smoker and quit 10-15 years ago. No marijuana or illicit drug use. She drinks alcohol occasionally. Past Drug Use History: None Reported - Past Family History Mother Family Medical History: Cancer Additional Family Medical History / Comment(s): Mother has history of breast cancer and mental health issues Father Family Medical History: Prostate Disorder Additional Family Medical History / Comment(s): Father has history of alcoholism but sober for 30 years, prostate cancer that is being monitored but otherwise healthy. Brother(s) Additional Family Medical History / Comment(s): Patient has 1 brother with no major medical problems. Patient has no sisters. Daughter(s) Additional Family Medical History / Comment(s): Patient has a total of 5 children, 3 girls and 2 boys. Patient's 9-year-old son has Tourette's, OCD and ADHD. One 3-year-old daughter has seizures. Medications and Allergies Home Medications Medication Instructions Recorded Confirmed Type Caprylic Acid 2 cap PO DAILY 03/23/18 04/20/18 History Multivitamins, Thera [Multivitamin 1 tab PO DAILY 04/20/18 04/20/18 History (formulary)] Allergies Allergy/AdvReac Type Severity Reaction Status Date / Time erythromycin base Allergy GI BLEED Verified 04/20/18 18:46 latex Allergy Rash/Hives Verified 04/20/18 18:46 moxifloxacin [From Avelox] Allergy Swelling Verified 04/20/18 18:46 Penicillins Allergy Rash/Hives Verified 04/20/18 18:46 tetracycline Allergy Hallucinati Verified 04/20/18 18:46 ons Physical Exam Vitals: Vital Signs Temp Pulse Pulse Resp BP BP Pulse Ox 04/21/18 08:03 98.7 F 87 16 106/71 98 04/21/18 03:13 16 04/21/18 01:35 99.0 F 92 16 99/59 97 04/21/18 00:00 16 04/20/18 21:47 122/68 04/20/18 21:31 98.6 F 105 H 16 99/63 97 04/20/18 21:00 101 H 16 121/68 98 04/20/18 20:08 97 14 113/61 98 04/20/18 18:25 99.2 F 100 14 120/72 96 04/20/18 17:25 98.5 F 128 H 20 148/85 99 Intake and Output 04/20/18 04/21/18 04/21/18 22:59 06:59 14:59 Other: Voiding Method Urinal Toilet Weight 77.111 kg Gen: This is a 43-year-old female. She is resting bed and appears to be comfortable and in no acute distress. HEENT: Head is atraumatic, normocephalic. Pupils equal, round. Sclerae is anicteric. NECK: Supple. No JVD. No lymphadenopathy. No thyromegaly. LUNGS: Clear to auscultation. No wheezes or rhonchi. No intercostal retractions. HEART: Regular rate and rhythm. No murmur. ABDOMEN: Soft. Bowel sounds are present. No masses. Left lower quadrant tenderness. EXTREMITIES: No pedal edema. No calf tenderness. NEUROLOGICAL: Patient is awake, alert and oriented x3. Cranial nerves 2 through 12 are grossly intact. Results CBC & Chem 7: 04/20/18 18:15 04/20/18 18:15 Labs: Abnormal Lab Results - Last 24 Hours (Table) 04/20/18 04/20/18 04/20/18 Range/Units 18:15 18:15 18:33 WBC 17.8 H (3.8-10.6) k/uL Neutrophils # 15.8 H (1.3-7.7) k/uL Carbon Dioxide 18 L (22-30) mmol/L Glucose 106 H (74-99) mg/dL Total Bilirubin 1.4 H (0.2-1.3) mg/dL Urine Appearance Cloudy H (Clear) Urine Protein 1+ H (Negative) Urine Ketones 4+ H (Negative) Urine RBC 9 H (0-5) /hpf Amorphous Sediment Rare H (None) /hpf Hyaline Casts 7 H (0-2) /lpf Urine Mucus Many H (None) /hpf Thrombosis Risk Factor Assmnt - DVT/VTE Prophylaxis DVT/VTE Prophylaxis: Pharmacologic Prophylaxis ordered - Choose All That Apply Any of the Below Risk Factors Present?: Yes Each Factor Represents 1 point: Age 41-60 years, Obesity (BMI >25) Other Risk Factors: No Other congenital or acquired thrombophilia - If yes, enter type in comment: No Thrombosis Risk Factor Assessment Total Risk Factor Score: 2 Thrombosis Risk Factor Assessment Level: Low Risk Assessment and Plan Plan: 1. Acute diverticulitis with SIRS. Continue IV antibiotics with Azactam and Flagyl, IV fluids at 75 mL per hour, repeat abdominal x-ray in the morning. Continue clear liquid diet and advance slowly. Continue IV morphine for pain and Zofran for nausea. 2. Metabolic acidosis secondary to dehydration. Continue IV fluids and monitor lab work in the morning. 3. Leukocytosis secondary to diverticulitis. Recheck in the morning. 4. History of frequent urinary tract infections which patient states has been improved since she started a sugar-free diet. 5. GI prophylaxis. IV Protonix. 6. DVT prophylaxis. Lovenox. Patient will be admitted to the hospital for a minimum of 2 night stay. Discharge plan: Return home Impression and plan of care have been directed as dictated by the signing physician. Dionne Lyons nurse practitioner acting as scribe for signing physician.
[2018-04-21] MEDS: SODIUM CHLORIDE 0.9% 1,000 ML IV SCH (13:48)
[2018-04-22] MEDS: AZTREONAM 2 GM in SODIUM CHLORIDE 0.9% 100 ML IVPB SCH ×3 (03:21→22:25)
[2018-04-22 07:39] LABS: Anion Gap 6 mmol/L; Blood Urea Nitrogen 5 mg/dL (7-17); Calcium 8.5 mg/dL (8.4-10.2); Carbon Dioxide 24 mmol/L (22-30); Chloride 109 mmol/L (98-107); Glucose 94 mg/dL (74-99); Potassium 4.1 mmol/L (3.5-5.1); Sodium 139 mmol/L (137-145)
[2018-04-22] MEDS: ENOXAPARIN 40 MG/0.4 ML SYRINGE SQ SCH (08:34)
[2018-04-22] MEDS: metroNIDAZOLE-NS PMX 500 MG in SALINE 1 100ML.BAG IVPB SCH ×2 (08:34→17:13)
[2018-04-22] MEDS ORDERED: PANTOPRAZOLE 40 MG/10 ML VIAL IVP SCH (09:00)
[2018-04-22] MEDS: traMADol 50 MG TAB PO PRN ×2 (11:20→22:25)
[2018-04-22] MEDS: SODIUM CHLORIDE 0.9% 1,000 ML IV SCH ×3 (11:24→23:36)
--- NOTE | 2018-04-22 12:49 | P.PN ---
Subjective Progress Note Date: 04/22/18 This is a 43-year-old female patient of Dr. Hernandez with past medical history of frequent urinary tract infections, remote history of tobacco use. Patient gives history that she saw Dr. Hernandez yesterday she was having abdominal pain that was in the left side going around to her flank that started on Monday she also had nausea without vomiting, chills and possible low-grade fever. Her last bowel movement was yesterday morning. She did feel that she had some constipation and took a laxative tea and she did not have a bowel movement on Monday or and was having some sharp gas pains. She is now penicillin gas but no bowel movement since yesterday. She saw Dr. Hernandez yesterday morning and was ordered for an ultrasound of the gallbladder which she did. She contacted the office which was closed and she was instructed to go to the emergency center for evaluation. Patient presented to [facility] emergency center was found to be afebrile, pulse was elevated at 128, blood pressure 140/85, pulse ox 99% on room air. White count was 17.8, electrolytes were normal except CO2 was 18, creatinine 0.63, glucose 106, total bilirubin 1.4 liver function tests were normal. Urinalysis was cloudy with nitrate and leukoesterase negative. HCG was not detected. She underwent CT of the abdomen and pelvis with contrast that showed moderate diverticulitis of the proximal descending colon. Due to antibiotic ALLERGIES, patient was started on Azactam, Flagyl, IV fluids, Zofran and morphine and [facility] Diet is currently clear liquid and she is tolerating this. Patient has never had a colonoscopy and does not have surgeon. 04/22: Patient states that after she took Protonix she started having ringing in her ear and a buzzing in her head with headache, sweats and extreme nausea. Protonix will be discontinued. Patient states she is unable to tolerate Pepcid. Carafate added. Patient is otherwise tolerating her diet which will be advanced to soft. She is requesting to stop taking morphine and tramadol added for pain. IV fluids will be changed over sodium lock. Anticipate possible discharge in the next 24 hours. Review of Systems Constitutional: Denies anorexia, denies chills, denies poor appetite, Denies fatigue, Denies fever Eyes: denies blurred vision, denies pain Ears, nose, mouth and throat: Denies dysphagia, Denies headache, Denies sore throat Cardiovascular: Denies chest pain, Denies decreased exercise tolerance, Denies dyspnea on exertion, Denies edema, Denies leg edema, Denies shortness of breath , Denies syncope Respiratory: Denies cough, Denies cough with sputum, Denies dyspnea, Denies excessive sputum, Denies hemoptysis, Denies home oxygen, Denies wheezing Gastrointestinal: Reports abdominal pain, Reports constipation, denies loss of appetite, denies nausea, Denies diarrhea, Denies vomiting Genitourinary: Reports flank pain, Denies dysuria, Denies hematuria Musculoskeletal: Denies frequent falls, Denies gait dysfunction, Denies muscle weakness, Denies myalgias Integumentary: Denies pruritus, Denies rash, Denies wounds Neurological: Denies aphasia, Denies change in mentation, Denies change in speech, Denies gait dysfunction, Denies headaches, Denies numbness, Denies seizures, Denies weakness Psychiatric: Denies anxiety, Denies depression Endocrine: Denies fatigue, Denies weight change Objective - Vital Signs Vital signs: Vital Signs Temp 98.4 F 04/22/18 02:16 Pulse 86 04/22/18 02:16 Resp 16 04/22/18 02:16 BP 107/55 04/22/18 02:16 Pulse Ox 97 04/22/18 02:16 Intake & Output 04/21/18 04/22/18 04/22/18 18:59 06:59 18:59 Intake Total 2460 Balance 2460 Intake: Intake, IV Titration 1500 Amount Aztreonam 2 gm In Sodium 100 Chloride 0.9% 100 ml @ 100 mls/hr IVPB Q8H OPAL Rx#:[id number] Aztreonam 2 gm In Sodium 100 Chloride 0.9% 100 ml @ 100 mls/hr IVPB Q8HR [facility]AL Rx#:[id number] Sodium Chloride 0.9% 1, 1200 000 ml @ 100 mls/hr IV . Q10H [facility]AL Rx#:[id number] metroNIDAZOLE-NS PMX 500 100 mg In Saline 1 100ml.bag @ 100 mls/hr IVPB Q8HR OPAL Rx#:[id number] Oral 960 Other: Voiding Method Toilet # Voids 2 3 - Exam Gen: This is a 43-year-old female. She is resting bed and appears to be comfortable and in no acute distress. HEENT: Head is atraumatic, normocephalic. Pupils equal, round. Sclerae is anicteric. NECK: Supple. No JVD. No lymphadenopathy. No thyromegaly. LUNGS: Clear to auscultation. No wheezes or rhonchi. No intercostal retractions. HEART: Regular rate and rhythm. No murmur. ABDOMEN: Soft. Bowel sounds are present. No masses. Left lower quadrant tenderness, improving. EXTREMITIES: No pedal edema. No calf tenderness. NEUROLOGICAL: Patient is awake, alert and oriented x3. Cranial nerves 2 through 12 are grossly intact. - Labs CBC & Chem 7: 04/20/18 18:15 04/22/18 06:53 Labs: Abnormal Lab Results - Last 24 Hours (Table) 04/22/18 Range/Units 06:53 Chloride 109 H (98-107) mmol/L BUN 5 L (7-17) mg/dL Assessment and Plan Plan: 1. Acute diverticulitis with SIRS. Continue IV antibiotics with Azactam and Flagyl, IV fluids will be discontinued, repeat abdominal x-ray report is pending. Advance diet to full liquids for lunch and soft for supper. Tramadol added for pain, continue Zofran for nausea. 2. Metabolic acidosis secondary to dehydration. Continue IV fluids and monitor lab work in the morning. 3. Leukocytosis secondary to diverticulitis. Recheck in the morning. 4. History of frequent urinary tract infections which patient states has been improved since she started a sugar-free diet. 5. GI prophylaxis. IV Protonix. 6. DVT prophylaxis. Lovenox. Discharge plan: Return home on Monday Impression and plan of care have been directed as dictated by the signing physician. Dionne Lyons nurse practitioner acting as scribe for signing physician.
[2018-04-22] MEDS ORDERED: ACETAMINOPHEN TAB 325 MG TAB PO PRN (13:15)
--- NOTE | 2018-04-22 14:13 | XR ---
EXAMINATION TYPE: XR abdomen 2V DATE OF EXAM: 04/22/2018 COMPARISON: CT abdomen pelvis 04/20/2018 INDICATION: Diverticulitis, abdominal pain TECHNIQUE: Single view abdomen upright view. Single view supine views also obtained. FINDINGS: There is a normal bowel gas pattern. No suspicious air-fluid levels or differential air-fluid levels are present. Small amount of nonspecific small bowel gas is present. No free air is present. No suspi cious differential air-fluid levels are present. Psoas margins are normal. No organomegaly is present. There are couple calcifications within the left hemipelvis above the iliac spine level. Distal left u reteral stones are not excluded. Phleboliths are within the differential. The larger measures 0.4 cm and the smaller measures 0.3 cm. Do not appear suspicious for ureteral stones on the CT examination IMPRESSION: 1. Nonspecific abdomen. 2. Phleboliths versus distal left ureteral stones left hemipelvis.
[2018-04-22] MEDS: SUCRALFATE 1 GM TAB PO SCH (17:12)
[2018-04-23] MEDS: metroNIDAZOLE-NS PMX 500 MG in SALINE 1 100ML.BAG IVPB SCH ×2 (00:28→08:25)
[2018-04-23] MEDS: AZTREONAM 2 GM in SODIUM CHLORIDE 0.9% 100 ML IVPB SCH ×2 (02:23→12:09)
[2018-04-23] MEDS: SODIUM CHLORIDE 0.9% 1,000 ML IV SCH (05:31)
[2018-04-23] MEDS: SUCRALFATE 1 GM TAB PO SCH (08:24)
[2018-04-23] MEDS: ENOXAPARIN 40 MG/0.4 ML SYRINGE SQ SCH (08:25)
[2018-04-23 08:34] VITALS: BP 120/74; PULSE 70; RESP 17; TEMP 98.2
--- NOTE | 2018-04-23 12:08 | P.DS ---
Providers Date of admission: 04/20/18 20:41 Expected date of discharge: 04/23/18 Attending physician: Yulia Reaves Primary care physician: José Manuel Hernandez [facility] Course: This is a 43-year-old female patient of Dr. Hernandez with past medical history of frequent urinary tract infections, remote history of tobacco use. Patient gives history that she saw Dr. Hernandez yesterday she was having abdominal pain that was in the left side going around to her flank that started on Monday she also had nausea without vomiting, chills and possible low-grade fever. Her last bowel movement was yesterday morning. She did feel that she had some constipation and took a laxative tea and she did not have a bowel movement on Monday or and was having some sharp gas pains. She is now penicillin gas but no bowel movement since yesterday. She saw Dr. Hernandez yesterday morning and was ordered for an ultrasound of the gallbladder which she did. She contacted the office which was closed and she was instructed to go to the emergency center for evaluation. Patient presented to [facility] emergency center was found to be afebrile, pulse was elevated at 128, blood pressure 140/85, pulse ox 99% on room air. White count was 17.8, electrolytes were normal except CO2 was 18, creatinine 0.63, glucose 106, total bilirubin 1.4 liver function tests were normal. Urinalysis was cloudy with nitrate and leukoesterase negative. HCG was not detected. She underwent CT of the abdomen and pelvis with contrast that showed moderate diverticulitis of the proximal descending colon. Due to antibiotic ALLERGIES, patient was started on Azactam, Flagyl, IV fluids, Zofran and morphine and admitted to the MedSur floor. Diet is currently clear liquid and she is tolerating this. Patient has never had a colonoscopy and does not have surgeon. 04/22: Patient states that after she took Protonix she started having ringing in her ear and a buzzing in her head with headache, sweats and extreme nausea. Protonix will be discontinued. Patient states she is unable to tolerate Pepcid. Carafate added. Patient is otherwise tolerating her diet which will be advanced to soft. She is requesting to stop taking morphine and tramadol added for pain. IV fluids will be changed over sodium lock. Anticipate possible discharge in the next 24 hours. 04/23: Patient has been afebrile, blood pressure 108/57, pulse between 70-91. Pulse ox 97% on room air. Patient is tolerating a soft diet. Patient has been instructed to avoid constipation to prevent further episodes of diverticulitis in the future. Her last bowel movement was on Monday. Recommended Colace. Patient will be discharged today on Bactrim due to ALLERGIES. Discharge diagnoses: 1. Acute diverticulitis with SIRS. 2. Metabolic acidosis secondary to dehydration. 3. Leukocytosis secondary to diverticulitis. 4. History of frequent urinary tract infections Discharge plan: Return home Impression and plan of care have been directed as dictated by the signing physician. Dionne Lyons nurse practitioner acting as scribe for signing physician. Patient Condition at Discharge: Good Plan - Discharge Summary Discharge Rx Participant: Yes New Discharge Prescriptions: New Sulfamethox-Tmp 800-160Mg [Bactrim DS 800-160 mg] 1 tab PO Q12HR #14 tab Continue Caprylic Acid 2 cap PO DAILY Multivitamins, Thera [Multivitamin (formulary)] 1 tab PO DAILY Discharge Medication List Caprylic Acid 2 cap PO DAILY 03/23/18 [History] Multivitamins, Thera [Multivitamin (formulary)] 1 tab PO DAILY 04/20/18 [History ] Sulfamethox-Tmp 800-160Mg [Bactrim DS 800-160 mg] 1 tab PO Q12HR #14 tab [Rx] Follow up Appointment(s)/Referral(s): José Manuel Hernandez DO [Primary Care Provider] - 1 Week (Office will contact patient upon discharge to set up a follow up appointment) Discharge Disposition: HOME SELF-CARE
== END 2018-04-23 15:22 | disposition home or self-care (01) | DRG 872 ==
LOC: EC 17:19 → 4SSUR 20:41
PROVIDERS: ADMIT Family Medicine; ATTEND Family Medicine
DX: A41.9 Sepsis, unspecified organism (principal); K57.32 Diverticulitis of large intestine without perforation or abscess without bleeding; E87.2 Acidosis; K59.00 Constipation, unspecified; E86.0 Dehydration; Z80.3 Family history of malignant neoplasm of breast; Z87.440 Personal history of urinary (tract) infections; Z87.891 Personal history of nicotine dependence; Z88.1 Allergy status to other antibiotic agents
CPT/HCPCS: 36415; 74019; 74177; 80048; 80053; 81001; 81025; 82150; 83690; 85025; 96360; 96361; 96365; 96375; 99285

== ENCOUNTER → 2018-04-20 | Outpatient (CLI) | payer BC ==
--- NOTE | 2018-04-20 16:45 | US ---
EXAMINATION TYPE: US abdomen complete DATE OF EXAM: 04/20/2018 COMPARISON: CLINICAL HISTORY: R10.12 LUQ pain. NPO, No surgeries EXAM MEASUREMENTS: Liver Length: 16.7 cm Gallbladder Wall: 0.1 cm CBD: 0.5 cm CHD: 0.4 Spleen: 9.3 cm Right Kidney: 11.9 x 5.2 x 4.4 cm Left Kidney: 10.0 x 4.6 x 5.9 cm Pancreas: Tail obscured by overlying bowel gas. Echogenic in appearance. Liver: wnl Gallbladder: wnl Evidence for sonographic Fuchs's sign: neg CBD: wnl CHD: wnl Spleen: wnl Right Kidney: wnl Left Kidney: wnl Upper IVC: wnl Abd Aorta: no AAA visualized The liver is homogenous. The intrahepatic portion of the IVC and proximal abdominal aorta are within normal limits. There is no evidence of cholelithiasis. Common bile duct is unremarkable. The visu alized portions of the pancreas are homogenous. The spleen is unremarkable. Kidneys are symmetric a nd free of hydronephrosis. No renal lesions are seen. IMPRESSION: NO ACUTE PROCESS.
== END | disposition home or self-care (01) ==
LOC: RADUSMAIN 15:52
PROVIDERS: ATTEND Family Medicine
DX: R10.2 Pelvic and perineal pain (principal)
CPT/HCPCS: 76700

== ENCOUNTER → 2020-03-10 | Outpatient (CLI) | payer BC ==
--- NOTE | 2020-03-10 17:30 | ECHOF ---
Referral Reason:R00.2 palpitations MEASUREMENTS -------- HEIGHT: 165.1 cm WEIGHT: 72.6 kg BP: IVSd: 0.8 cm (0.6 - 1.1) LVIDd: 4.1 cm (3.9 - 5.3) LVPWd: 1.1 cm (0.6 - 1.1) IVSs: 1.3 cm LVIDs: 3.3 cm LVPWs: 1.2 cm LAESV Index (A-L): 23.96 ml/m Ao Diam: 3.0 cm (2.0 - 3.7) AV Cusp: 2.2 cm (1.5 - 2.6) EPSS: 0.4 cm MV E Daniel: 0.69 m/s MV DecT: 153 ms MV A Daniel: 0.48 m/s MV E/A Ratio: 1.45 RAP: 5.00 mmHg RVSP: 26.73 mmHg MV EF SLOPE: 119.59 mm/s (70 - 150) MV EXCURSION: 21.48 mm (> 18.000) FINDINGS -------- Sinus rhythm. This was a technically good study. LV size, wall thickness and systolic function are normal, with an EF greater than 55%. The left guido tricular size is normal. The right ventricle is normal in size. Normal LA size by volume 22+/-6 ml/m2. The right atrial size is normal. The aortic valve is trileaflet, and appears structurally normal. No aortic stenosis or regurgitation. Mild mitral regurgitation is present. Mild tricuspid regurgitation present. Right ventricular systolic pressure is normal at < 35 mmHg. There is no pulmonic regurgitation present. The aortic root size is normal. There is no pericardial effusion. CONCLUSIONS -------- 1. LV size, wall thickness and systolic function are normal, with an EF greater than 55%. 2. The left ventricular size is normal. 3. The right ventricle is normal in size. 4. Normal LA size by volume 22+/-6 ml/m2. 5. The right atrial size is normal. 6. Mild mitral regurgitation is present. 7. Mild tricuspid regurgitation present. 8. The aortic root size is normal. 9. There is no pericardial effusion. SALES STRATEGY MANAGER: Jeanne Cruz RD
== END | disposition home or self-care (01) ==
LOC: RADECHMAIN 14:37
PROVIDERS: ATTEND Family Medicine
DX: I08.1 Rheumatic disorders of both mitral and tricuspid valves (principal)
CPT/HCPCS: 93306

== ENCOUNTER 2020-03-17 11:51 | Emergency (ER) | payer BC ==
[2020-03-17 12:09] VITALS: BP 146/80; PULSE 98; RESP 18; TEMP 98.6
--- NOTE | 2020-03-17 13:31 | ED ---
General Adult HPI - General Chief complaint: Skin/Abscess/Foreign Body Stated complaint: abscess under arm Time Seen by Provider: 03/17/20 12:26 Source: patient, RN notes reviewed Mode of arrival: ambulatory Limitations: no limitations - History of Present Illness Initial comments: 45-year-old female presents emergency Department chief complaint of right arm discomfort, redness noted. Patient states she started a few days ago with the right axilla pain. She states that she that she was developing infection but then states the pain moved down into her bicep region along with the rash. Patient states it is red, warm to feel touch, painful and her arm. She was sent in to rule out DVT she denies any chest pain or shortness of breath she states t hat she's been having different symptoms lately because she was started on topical medications for basal cell carcinoma along with testing positive for covid - Related Data Home Medications Medication Instructions Recorded Confirmed Multivitamins, Thera [Multivitamin 1 tab PO DAILY 04/20/18 03/17/20 (formulary)] Ascorbic Acid [Vitamin C] 1,000 mg PO DAILY 03/17/20 03/17/20 Biotin 5 mg PO DAILY 03/17/20 03/17/20 Riboflavin (Vitamin B2) [Vitamin 50 mg PO DAILY 03/17/20 03/17/20 B-2] Vitamin B Complex 1 cap PO DAILY 03/17/20 03/17/20 Zinc 50 mg PO DAILY 03/17/20 03/17/20 Previous Rx's Medication Instructions Recorded Cephalexin [Keflex] 500 mg PO Q6HR #28 cap 03/17/20 Allergies Allergy/AdvReac Type Severity Reaction Status Date / Time latex Allergy Rash/Hives Verified 03/17/20 12:53 moxifloxacin [From Avelox] Allergy Swelling Verified 03/17/20 12:53 Penicillins Allergy Rash/Hives Verified 03/17/20 12:53 erythromycin base AdvReac GI BLEED Verified 03/17/20 12:53 pantoprazole [From Protonix] AdvReac Hallucinati Verified 03/17/20 12:53 ons tetracycline AdvReac Hallucinati Verified 03/17/20 12:53 ons Review of Systems ROS Statement: Those systems with pertinent positive or pertinent negative responses have been documented in the HPI. ROS Other: All systems not noted in ROS Statement are negative. Past Medical History Past Medical History: No Reported History Additional Past Medical History / Comment(s): Diverticulitis, frequent urinary tract infection history History of Any Multi-Drug Resistant Organisms: None Reported Past Surgical History: No Surgical Hx Reported Past Anesthesia/Blood Transfusion Reactions: No Reported Reaction Past Psychological History: No Psychological Hx Reported Past Alcohol Use History: Occasional Past Drug Use History: None Reported - Past Family History Mother Family Medical History: Cancer Additional Family Medical History / Comment(s): Mother has history of breast cancer and mental health issues Father Family Medical History: Prostate Disorder Additional Family Medical History / Comment(s): Father has history of alcoholism but sober for 30 years, prostate cancer that is being monitored but otherwise healthy. Brother(s) Additional Family Medical History / Comment(s): Patient has 1 brother with no major medical problems. Patient has no sisters. Daughter(s) Additional Family Medical History / Comment(s): Patient has a total of 5 children, 3 girls and 2 boys. Patient's 9-year-old son has Tourette's, OCD and ADHD. One 3-year-old daughter has seizures. General Exam Limitations: no limitations General appearance: alert, in no apparent distress Head exam: Present: atraumatic, normocephalic, normal inspection Eye exam: Present: normal appearance, PERRL, EOMI. Absent: scleral icterus, conjunctival injection, periorbital swelling Respiratory exam: Present: normal lung sounds bilaterally. Absent: respiratory distress, wheezes, rales, rhonchi, stridor Cardiovascular Exam: Present: regular rate, normal rhythm, normal heart sounds. Absent: systolic murmur, diastolic murmur, rubs, gallop, clicks Extremities exam: Present: other (Right bicep region there is an area of rash pressure 2 cm x 4 cm. Mildly tender with palpation, erythema noted neurovascular intact no tenderness of the axilla) Skin exam: Present: warm, dry Course Vital Signs 03/17/20 12:03 Temperature 98.6 F Pulse Rate 98 Respiratory 18 Rate Blood Pressure 146/80 O2 Sat by Pulse 99 Oximetry Medical Decision Making - Medical Decision Making Old chart is negative for acute DVT. Patient has area of irritation in for early cellulitis. Patient was started on antibiotics return parameters discus sed. Disposition Clinical Impression: Cellulitis Disposition: HOME SELF-CARE Condition: Stable Instructions (If sedation given, give patient instructions): Cellulitis (ED) Additional Instructions: Please return to the Emergency Department if symptoms worsen or any other concerns. Prescriptions: Cephalexin [Keflex] 500 mg PO Q6HR #28 cap Is patient prescribed a controlled substance at d/c from ED?: No Referrals: José Manuel Hernandez DO [Primary Care Provider] - 1-2 days Time of Disposition: 13:47
--- NOTE | 2020-03-17 13:44 | US ---
EXAMINATION TYPE: US venous doppler duplex UE RT DATE OF EXAM: 03/17/2020 COMPARISON: NONE CLINICAL HISTORY: 45-year-old female pain. Arm discomfort. Small area of redness. No arm swelling. Recent COVID x 1 month ago. SIDE PERFORMED: Right TECHNIQUE: Grayscale, color doppler, spectral doppler imaging performed of the deep veins of the upp er extremities. FINDINGS: There is normal flow, compressibility and vascular waveforms. Right Arm: Negative for DVT IMPRESSION: No evidence for DVT within the right upper extremity.
== END 2020-03-17 13:53 | disposition home or self-care (01) ==
LOC: EC 11:51
DX: L03.111 Cellulitis of right axilla (principal); C44.91 Basal cell carcinoma of skin, unspecified; Z88.0 Allergy status to penicillin; Z88.1 Allergy status to other antibiotic agents; Z91.040 Latex allergy status; Z88.8 Allergy status to other drugs, medicaments and biological substances; Z80.3 Family history of malignant neoplasm of breast
CPT/HCPCS: 99283

== ENCOUNTER 2021-10-17 07:08 | Emergency (ER) | payer BC ==
[2021-10-17 07:17] VITALS: RESP 16; TEMP 98.4
[2021-10-17] MEDS ORDERED: PROPARACAINE 0.5% OPHTH DROPS 15 ML BTL LEFT EYE STA (07:30)
[2021-10-17] MEDS ORDERED: diphenhydrAMINE 50 MG CAP PO STA (07:30)
[2021-10-17] MEDS ORDERED: FLUORESCEIN STRIPS 1 MG STRIP BOTH EYES ONE (07:30)
[2021-10-17] MEDS ORDERED: PROPARACAINE 0.5% OPHTH DROPS 15 ML BTL RIGHT EYE STA (07:30)
--- NOTE | 2021-10-17 07:40 | ED ---
Eye Problem HPI - General Chief complaint: Eye Problems Stated complaint: Eye Problems, Allergic Reaction Time Seen by Provider: 10/17/21 07:20 Source: patient, family Mode of arrival: ambulatory Limitations: no limitations - History of Present Illness Initial comments: Well-appearing 46-year-old female patient presents to the emergency room ambulatory with family member complaining of bilateral eye redness and drainage for one day. She states that her and her other family members have had upper respiratory symptoms and all were tested for coronavirus and negative. Patient states that she was seen at urgent care earlier in the week and diagnosed with upper respiratory infection and placed on Keflex and prednisone. Her symptoms have resolved however yesterday she developed bilateral eyelid swelling with eye redness and today woke up with crusty drainage. She is not sure if it's a reaction to the Keflex or prednisone however states she has finished taking the prednisone. She states that she has multiple ALLERGIES. Denies any headaches, states her sore throat and upper respiratory symptoms have resolved. No fevers, no nausea or vomiting and no photophobia chief complaint: eye redness, other (eye drainage) -: days(s) (1) Location: both eyes Place: home Eye Symptoms: redness, blurry vision, other (drainage) Consistency: constant Context: recent uri, sore throat Treatments Prior to Arrival: other (Prednisone Keflex) - Related Data Patient Tetanus UTD: Yes Home Medications Medication Instructions Recorded Confirmed Multivitamins, Thera [Multivitamin 1 tab PO DAILY 04/20/18 03/17/20 (formulary)] Ascorbic Acid [Vitamin C] 1,000 mg PO DAILY 03/17/20 03/17/20 Biotin 5 mg PO DAILY 03/17/20 03/17/20 Riboflavin (Vitamin B2) [Vitamin 50 mg PO DAILY 03/17/20 03/17/20 B-2] Vitamin B Complex 1 cap PO DAILY 03/17/20 03/17/20 Zinc 50 mg PO DAILY 03/17/20 03/17/20 Previous Rx's Medication Instructions Recorded Cephalexin [Keflex] 500 mg PO Q6HR #28 cap 03/17/20 Polymyxin B-Trimeth Sulf Ophth 1 drops BOTH EYES Q4H 7 Days #10 ml 10/17/21 [Polytrim Opthalmic] Allergies Allergy/AdvReac Type Severity Reaction Status Date / Time latex Allergy Rash/Hives Verified 10/17/21 07:17 moxifloxacin [From Avelox] Allergy Swelling Verified 10/17/21 07:17 Penicillins Allergy Rash/Hives Verified 10/17/21 07:17 erythromycin base AdvReac GI BLEED Verified 10/17/21 07:17 pantoprazole [From Protonix] AdvReac Hallucinati Verified 10/17/21 07:17 ons tetracycline AdvReac Hallucinati Verified 10/17/21 07:17 ons Review of Systems ROS Statement: Those systems with pertinent positive or pertinent negative responses have been documented in the HPI. ROS Other: All systems not noted in ROS Statement are negative. Past Medical History Past Medical History: No Reported History Additional Past Medical History / Comment(s): Diverticulitis, frequent urinary tract infection history History of Any Multi-Drug Resistant Organisms: None Reported Past Surgical History: No Surgical Hx Reported Past Anesthesia/Blood Transfusion Reactions: No Reported Reaction Past Psychological History: No Psychological Hx Reported Smoking Status: Never smoker Past Alcohol Use History: Occasional Past Drug Use History: None Reported - Past Family History Mother Family Medical History: Cancer Additional Family Medical History / Comment(s): Mother has history of breast cancer and mental health issues Father Family Medical History: Prostate Disorder Additional Family Medical History / Comment(s): Father has history of alcoholism but sober for 30 years, prostate cancer that is being monitored but otherwise healthy. Brother(s) Additional Family Medical History / Comment(s): Patient has 1 brother with no major medical problems. Patient has no sisters. Daughter(s) Additional Family Medical History / Comment(s): Patient has a total of 5 children, 3 girls and 2 boys. Patient's 9-year-old son has Tourette's, OCD and ADHD. One 3-year-old daughter has seizures. General Exam Limitations: no limitations General appearance: alert, in no apparent distress Head exam: Present: atraumatic Eye exam: Present: PERRL, EOMI, conjunctival injection. Absent: nystagmus Pupils: Present: normal accommodation Expanded Eyelids: Swelling: Bilateral Pupils: Regular, Round: Bilateral Sclera/Conjunctival: Injection: Bilateral Anterior chamber: Normal Inspection: Bilateral Visual acuity (R) = 20/: 30 Visual acuity (L) = 20/: 30 With correction: Yes ENT exam: Present: normal exam, normal oropharynx, mucous membranes moist Expanded Mouth exam: Present: tongue normal, tongue elevation. Absent: drooling, trismus, muffled voice Throat exam: normal inspection. negative: tonsillar erythema, tonsillomegaly, tonsillar exudate, R peritonsillar mass, L peritonsillar mass Neck exam: Present: normal inspection, full ROM. Absent: tenderness, meningismus Respiratory exam: Present: normal lung sounds bilaterally. Absent: respiratory distress, accessory muscle use Cardiovascular Exam: Present: regular rate Extremities exam: Present: normal capillary refill. Absent: pedal edema Neurological exam: Present: alert, oriented X3, normal gait Psychiatric exam: Present: normal affect, normal mood Skin exam: Present: warm, dry, normal color. Absent: cyanosis, diaphoretic, petechiae, pallor Course Vital Signs 10/17/21 10/17/21 07:15 08:02 Temperature 98.4 F Pulse Rate 94 91 Respiratory 16 16 Rate Blood Pressure 130/70 145/87 O2 Sat by Pulse 99 99 Oximetry Medical Decision Making - Medical Decision Making Patient presents with 1 days of eyelid swelling and red eyes. She was recently treated for an upper respiratory infection on Monday with Keflex and prednisone. She did finish her prednisone. Under Fluorescein staining there is no evidence of corneal abrasion, negative Taina sign. She has no pain with ocular movements. She has no vision loss. She denies headache. No fevers. This appears to be a viral conjunctivitis. She was prescribed antibiotic eyedrops directed to follow up with her primary care doctor and ophthalmology next week. She is agreeable to this plan of care. Case discussed with Dr. Lezama. Disposition Clinical Impression: Viral conjunctivitis Disposition: HOME SELF-CARE Condition: Good Instructions (If sedation given, give patient instructions): Conjunctivitis (ED) Additional Instructions: Using antibiotic drops as prescribed. Follow-up with the primary care doctor next week. Ophthalmology as needed. Use a wet washcloth to wipe sway drainage to prevent corneal abrasion. Prescriptions: Polymyxin B-Trimeth Sulf Ophth [Polytrim Opthalmic] 1 drops BOTH EYES Q4H 7 Days #10 ml Is patient prescribed a controlled substance at d/c from ED?: No Referrals: José Manuel Hernandez DO [Primary Care Provider] - 1-2 days Mario Kelley MD [STAFF PHYSICIAN] - 1-2 days Time of Disposition: 07:55
[2021-10-17 08:03] VITALS: BP 145/87; PULSE 91
== END 2021-10-17 08:03 | disposition home or self-care (01) ==
LOC: EC 07:08
DX: B30.9 Viral conjunctivitis, unspecified (principal); Z91.040 Latex allergy status; Z88.0 Allergy status to penicillin; Z88.8 Allergy status to other drugs, medicaments and biological substances; Z88.6 Allergy status to analgesic agent
CPT/HCPCS: 99283

== ENCOUNTER → 2022-03-15 | Outpatient (CLI) | payer BC ==
[2022-03-15 14:31] LABS: HCT 42.2 % (37.2-46.3); HGB 14.5 g/dL (12.0-15.0); MCH 30.1 pg (27.0-32.0); MCHC 34.4 g/dL (32.0-37.0); MCV 87.6 fL (80.0-97.0); Mean Platelet Volume 9.3 fL (9.5-12.2); NRBC Per 100 WBC 0 /100 WBCS (0.0-0.0); Platelet Count 383 X 10*3/uL (140-440); RBC 4.82 X 10*6/uL (4.10-5.20); RDW 12.6 % (11.5-14.5); WBC 5.29 X 10*3/uL (4.50-10.00)
[2022-03-15 16:07] LABS: Chol/HDL Ratio 2.67 Ratio; VLDL Calculation 13.78 mg/dL (5.00-40.00)
[2022-03-15 16:20] LABS: ALT 17 U/L (8-44); AST 20 U/L (13-35); African American GFR (CKD) 102.5 (60.0-200.0); Albumin 4.7 g/dL (3.8-4.9); Albumin/Globulin Ratio 2.24 (1.60-3.17); Alkaline Phosphatase 66 U/L (41-126); BUN/Creat Ratio 14.25 Ratio (12.00-20.00); Blood Urea Nitrogen 11.4 mg/dL (9.0-27.0); Calcium 9.2 mg/dL (8.7-10.3); Carbon Dioxide 22.3 mmol/L (20.0-27.5); Chloride 103 mmol/L (96-109); Globulin 2.1 g/dL (1.6-3.3); Glucose 87 mg/dL (70-110); Non-African American GFR(CKD) 88.4 (60.0-200.0); Potassium 4.6 mmol/L (3.5-5.5); Sodium 138 mmol/L (135-145); Total Protein 6.8 g/dL (6.2-8.2)
== END | disposition home or self-care (01) ==
LOC: LABWHC1 10:02
PROVIDERS: ATTEND Family Medicine
DX: N95.1 Menopausal and female climacteric states (principal); K57.92 Diverticulitis of intestine, part unspecified, without perforation or abscess without bleeding
CPT/HCPCS: 36415; 80053; 80061; 84443; 85027

== ENCOUNTER → 2022-03-22 | Outpatient (CLI) | payer BC ==
--- NOTE | 2022-03-22 17:35 | CT ---
EXAMINATION TYPE: CT abdomen pelvis wo con CT DLP: 986 mGycm, Automated exposure control for dose reduction was used. DATE OF EXAM: 03/22/2022 5:16 PM COMPARISON: CT abdomen pelvis most recent from 04/20/2018 CLINICAL INDICATION:Female, 47 years old with history of K57.92 DVTRCLI OF INTEST, PART UNSP; Diverti culitis flare up x3wks. TECHNIQUE: Axial CT of the abdomen and pelvis. Sagittal and coronal reformats were created on a [employer] workstation. Contrast used: None Oral contrast used: with Oral Contrast FINDINGS: LOWER CHEST: Unremarkable ABDOMEN LIVER: Unremarkable GALLBLADDER AND BILE DUCTS: Unremarkable. PANCREAS: Unremarkable. SPLEEN: Unremarkable. ADRENAL GLANDS: Unremarkable. KIDNEYS AND URETERS: No evidence of hydronephrosis or renal calculus. The ureters are unremarkable. PELVIS BLADDER: Unremarkable REPRODUCTIVE: r right ovarian dominant follicle measuring up to 2.6 cm ABDOMEN & PELVIS STOMACH AND BOWEL: Small hiatal hernia, duodenum is unremarkable. Few scattered clonic diverticula a re present. No evidence of bowel obstruction. Moderate to large stool burden throughout the right col on. PERITONEUM/RETROPERITONEUM: No evidence of pneumoperitoneum or free fluid. . VASCULATURE: No evidence of aortic aneurysm. MUSCULOSKELETAL: No acute osseous abnormalities LYMPH NODES: No gross evidence for lymphadenopathy. SOFT TISSUE/ABDOMINAL WALL: Unremarkable IMPRESSION: 1. No evidence for acute diverticulitis. No acute intra-abdominal process to explain the patient's p ain. 2. Moderate to large stool burden throughout the right colon.
== END | disposition home or self-care (01) ==
LOC: RADCTMAIN 14:51
PROVIDERS: ATTEND Family Medicine
DX: R19.5 Other fecal abnormalities (principal); K57.92 Diverticulitis of intestine, part unspecified, without perforation or abscess without bleeding
CPT/HCPCS: 74176; Q9967

== ENCOUNTER 2022-08-02 09:36 | Day surgery (SDC) | payer BC ==
[2022-07-29 16:08] VITALS: BMI 28.3
[~2022-08-02 09:36] MED LIST: LACTATED RINGERS 1,000 ML IV SCH; LIDOCAINE 1% (10MG/ML) FOR IV START INTRADERMA PRN
[2022-08-02 10:20] VITALS: TEMP 98.4
[2022-08-02] MEDS ORDERED: PROPOFOL 10 MG/ML 20 ML VIAL IV ONE (11:05)
--- NOTE | 2022-08-02 11:29 | P.PCN ---
Date of Procedure: 08/02/22 Procedure(s) Performed: BRIEF HISTORY: Patient is a 47-year-old pleasant white female scheduled for an elective colonoscopy as a part of evaluation of recent episode of acute sigmoid diverticulitis and change in bowel habits. PROCEDURE PERFORMED: Colonoscopy with snare polypectomy. PREOPERATIVE DIAGNOSIS: Recent episode of acute sigmoid diverticulitis and change in bowel habits. IV sedation per Anesthesia. PROCEDURE: After informed consent was obtained, the patient, was brought into the endoscopy unit. IV sedation was administered by Anesthesia under continuous monitoring. Digital rectal examination was normal. Initially the Olympus CF-160 flexible video colonoscope was then inserted in the rectum, gradually advanced into the cecum without any difficulty. Careful examination was performed as the scope was gradually being withdrawn. Ileocecal valve and the appendiceal orifice were visualized and appeared normal. Prep was excellent. Mucosa of the cecum, appeared normal. Ascending colon there was a 1 cm broad-based polyp removed by snare polypectomy. In the descending colon there was a 5 mm polyp removed by snare polypectomy. Rest of the ascending colon, transverse colon, descending colon, sigmoid colon, and rectum appeared normal. Scattered left sided diverticulosis seen. Retroflexion was performed in the rectum and no lesions were seen. The patient tolerated the procedure well. IMPRESSION: 1 cm broad-based ascending colon polyp status post-polypectomy 5 mm descending colon polyp status post polypectomy Scattered sigmoid diverticulosis RECOMMENDATIONS: Findings of this examination were discussed with the patient as well as her family. She was advised to follow with the biopsy results. If the biopsy results adenoma she can have a repeat colonoscopy in 3 years..
[2022-08-02 11:49] VITALS: BP 124/77; PULSE 66; RESP 20
== END 2022-08-02 12:00 | disposition home or self-care (01) ==
LOC: ORWHC2ENDO 09:36
PROVIDERS: ATTEND Internal Medicine Gastroenterology
DX: K57.30 Diverticulosis of large intestine without perforation or abscess without bleeding (principal); K63.5 Polyp of colon; K21.9 Gastro-esophageal reflux disease without esophagitis; Z87.891 Personal history of nicotine dependence; Z88.0 Allergy status to penicillin; Z79.899 Other long term (current) drug therapy; Z91.040 Latex allergy status; Z88.8 Allergy status to other drugs, medicaments and biological substances
CPT/HCPCS: 81025; 88305; 45385; J2704